=== PATIENT | male | born 1955 | race Two or more races ===

== ENCOUNTER 2018-05-24 10:22 | Emergency (ER) | payer MEDICAID, OTHER ==
[~2018-05-24] VITALS: Ht 165.1 cm; Wt 74.8 kg
[2018-05-24] MEDS: ONDANSETRON HCL 4 MG/2 ML VIAL IV ONE (11:04)
[2018-05-24] MEDS: HYDROmorphone HCL 2 MG/ML VL IV ONE (11:04)
[2018-05-24] MEDS: LACTATED RINGER'S 2,000 ML IV ONE (11:04)
[2018-05-24 11:24] LABS: Basophils # (auto) 0.1 uL; Basophils % (auto) 0.6 % (0.0-2.0); Eosinophils # (auto) 0.1 uL; Eosinophils % (auto) 0.6 % (0.0-7.0); Hematocrit 45.4 % (41.0-53.0); Hemoglobin 15.4 g/dL (13.5-17.5); Lymphocytes # (auto) 2.8 uL; Mean Corpuscular Hgb Conc. 33.9 g/dL (32.0-36.0); Mean Corpuscular Volume 94.4 fL (80.0-100.0); Monocytes # (auto) 1.1 uL; Monocytes % (auto) 6.7 % (0.0-12.0); Neutrophils # (auto) 12.6 uL; Neutrophils % (auto) 75.1 % (37.0-80.0); Platelet Count (auto) 352 10^3/uL (140-450); Red Blood Cells 4.81 10^6/uL (4.5-5.90); Red Cell Distribution Width 12.8 % (11.8-14.3); White Blood Cell 16.7 10^3/uL (4.4-10.8)
[2018-05-24 11:45] LABS: Bilirubin, Total 0.6 mg/dL (0.2-1.0); Calcium 9.1 mg/dL (8.5-10.1); Potassium 3.6 mmol/L (3.5-5.1)
[2018-05-24] MEDS: cloNIDine HCL 0.1 MG TAB PO ONE (13:47)
[2018-05-24 14:04] VITALS: BP 235/88
== END 2018-05-24 14:21 | disposition short-term general hospital (02) ==
LOC: ER 10:29
DX: T21.21XA Burn of second degree of chest wall, initial encounter (principal); T22.20XA Burn of second degree of shoulder and upper limb, except wrist and hand, unspecified site, initial encounter; T31.22 Burns involving 20-29% of body surface with 20-29% third degree burns; X08.8XXA Exposure to other specified smoke, fire and flames, initial encounter; Y93.89 Activity, other specified; Y92.89 Other specified places as the place of occurrence of the external cause; Y99.8 Other external cause status
CPT/HCPCS: 16030; 36415; 80053; 85025; 94761; 96365; 96366; 96375; 99285; J1170; J2405